=== PATIENT | female | born 1935 | race Caucasian/White ===

== ENCOUNTER 2017-04-07 10:05 | Emergency (ER) | payer MEDICARE, OTHER ==
[2017-04-07 10:42] LABS: #Basophils 0.1 thou/uL (0.0-0.2); #Eosinphils 0.3 thou/uL (0.0-0.7); #Lymphocytes 1.4 thou/uL (1.20-3.40); #Monocytes 0.4 thou/uL (0.11-0.59); #Neutrophils 3.9 thou/uL (1.40-6.50); %Basophils 1.6 % (0.0-1.0); %Eosinophils 5.3 % (0.0-10.0); %Lymphocytes 22.2 % (21.0-51.0); %Monocytes 6.6 % (0.0-10.0); Hematocrit 41.6 % (36.0-47.0); Mean Platelet Volume 8.2 fL (7.4-10.4); Red Blood Cell (RBC) Count 4.54 mill/uL (4.20-5.40); White Blood Cell (WBC) Count 6.1 thou/uL (4.8-10.8)
[2017-04-07] MEDS ORDERED: Diazepam 10 MG/2 ML SYRINGE ONE (10:53)
[2017-04-07] MEDS ORDERED: Dexamethasone 4 mg/ml Vial ONE (10:53)
[2017-04-07 10:58] LABS: Anion Gap 15 mmol/L (10-20); BUN (Urea Nitrogen) 10 mg/dL (9.8-20.1); Calc. Creatinine Clearance 0 mL/min (70-130); Carbon Dioxide 21 mmol/L (23-31); Chloride 107 mmol/L (98-107); Estimated GFR-MDRD 81
[2017-04-07 11:02] LABS: Troponin I Less than 0.010 ng/mL (< 0.028)
--- NOTE | 2017-04-07 12:04 | RAD ---
CHEST 2 VIEWS: Date: 04/07/17 HISTORY: Neck pain. COMPARISON: Chest radiograph dated 2014. FINDINGS: Lungs are clear. No pneumothorax or effusion. Cardiac silhouette and mediastinal contours are simila r. There are mid thoracic compression fractures, as well as lower thoracic compression fractures, all o f which appear similar. The aorta is ectatic and tortuous. Occluder device is present projecting over the left atrium. IMPRESSION: No acute intrathoracic abnormality. POS: [facility]
--- NOTE | 2017-04-07 12:22 | CT ---
CT CERVICAL SPINE NONCONTRAST: HISTORY: 81-year-old female with nontraumatic cervicalgia. FINDINGS: No prevertebral soft tissue swelling. Vertebral body heights are maintained. The bilateral foramina transversaria are prominent. This is especially so on the left at the C4 level. No jumped or perched facets. Multilevel degenerative facet changes bilaterally, mild and moderate, at multiple levels. High grade disc space narrowing with end plate irregularity at C3-4, C4-5, and C5-6. No high grade central bony spinal canal stenosis at any level. There is moderate bilateral proximal neural foramin al stenosis at C5-6. No fracture identified. IMPRESSION: 1. Cervical spondylosis, with multilevel degenerative disc disease and facet osteoarthrosis, modera te to severe. 2. Bilateral neural foraminal stenosis at C5-6. 3. No high grade central spinal canal stenosis at any level. [facility] Mistry POS: [facility]
== END 2017-04-07 11:58 | disposition home or self-care (01) ==
LOC: SCSER 10:05
DX: M54.2 Cervicalgia (principal); I25.10 Atherosclerotic heart disease of native coronary artery without angina pectoris; I50.9 Heart failure, unspecified; M81.0 Age-related osteoporosis without current pathological fracture; M06.9 Rheumatoid arthritis, unspecified; Z79.82 Long term (current) use of aspirin; Z79.899 Other long term (current) drug therapy
CPT/HCPCS: 71020; 72125; 80048; 82553; 84484; 85025; 93005; 96374; 96375; J1100; J3360

== ENCOUNTER 2017-04-10 12:48 | Outpatient (CLI) | payer MEDICARE, OTHER ==
[2017-04-10] MEDS ORDERED: Sodium Chloride 0.9% (PF) 10 ML VIAL ONE (13:49)
[2017-04-10] MEDS ORDERED: EPINEPHrine 1 MG/ML AMP ONE (13:49)
[2017-04-10] MEDS ORDERED: Iopamidol 300 61% 30 ML VIAL ONE (13:49)
[2017-04-10] MEDS ORDERED: Lidocaine 1% PF 5 ML VIAL ONE (13:49)
--- NOTE | 2017-04-10 15:53 | RAD ---
LEFT SHOULDER ARTHROGRAM 04/10/17 HISTORY: Internal derangement left shoulder. FINDINGS: After explaining the procedure and answering all questions, the anterior aspect of the left shoulder was prepped and draped in the usual sterile fashion. Sterile technique, buffered local anesthesia, fluoroscopic guidance, and an anterior approach were used to carefully advanced the tip of a 22 gaug e spinal needle to the joint capsule. Approximately 10 mL of a liquid mixture containing normal sali ne, 1% lidocaine, iodinated contrast, and a small amount of epinephrine were then instilled into the joint capsule under fluoroscopic control. Needle was removed and spot images were obtained. Patient tolerated the procedure well and was transferred to CT in good condition for further imaging. IMPRESSION: Technically successful left shoulder arthrogram revealing no full thickness rotator cuff tear. Post arthrogram CT is pending. POS: [facility]
--- NOTE | 2017-04-10 16:10 | CT ---
CT ARTHROGRAM OF THE LEFT SHOULDER: Indication: N25.5.2; left shoulder pain. Technique: Multiple CT images were obtained of the left shoulder following intraarticular administra tion of diluted IV contrast solution. Please see the arthrogram report concerning injection techniqu e. FINDINGS: The biceps tendon is located. There is mild to moderate suggested tendinosis involving the proximal biceps tendon. The rotator cuff is intact. There is some mild suggestive atrophy of the supraspinatu s which is nonspecific. There is mild to moderate degenerative arthrosis involving the glenohumeral joint with a subchondral cyst like abnormality involving the posterior inferior aspect of the glenoi d. No definite intraarticular bodies are evident. There is a left chest wall pacemaker in place. The re are small bilateral pleural effusions present. There is cardiomegaly. The left lung is clear. The re is mild osteoarthrosis of the AC joint. IMPRESSION: 1. Intact rotator cuff. 2. Mild supraspinatus muscular atrophy. 3. Suggestion of some mild to moderate tendinosis of the proximal intraarticular biceps tendon. 4. Mild AC joint osteoarthrosis. 5. Small bilateral pleural effusion and cardiomegaly. Recommend correlate for mild CHF. POS: [facility]
== END 2017-04-10 12:49 | disposition home or self-care (01) ==
LOC: RAD 12:48
PROVIDERS: ATTEND Orthopaedic Surgery
DX: M25.512 Pain in left shoulder (principal); M19.012 Primary osteoarthritis, left shoulder; M62.512 Muscle wasting and atrophy, not elsewhere classified, left shoulder; J90 Pleural effusion, not elsewhere classified; I51.7 Cardiomegaly; M75.22 Bicipital tendinitis, left shoulder
CPT/HCPCS: 23350; J0171; J2001

== ENCOUNTER 2017-08-26 13:46 | Inpatient (IN) | payer MEDICARE, OTHER ==
[~2017-08-26 13:46] MED LIST: ISOVUE-370 76%-LOCM 1 ML ONE
--- NOTE | 2017-08-26 14:33 | RAD ---
PORTABLE CHEST: Date: 08/26/17 HISTORY: Chest pain. Confusion. COMPARISON: 05/19/16. FINDINGS: Heart size is enlarged. There is an internal defibrillator device present. The lungs are clear of inf iltrates. No signs of failure. Right humeral prosthesis is noted. IMPRESSION: Cardiomegaly. No acute findings. POS: [facility]
[2017-08-26 14:46] LABS: #Basophils 0.1 thou/uL (0.0-0.2); #Eosinphils 0.2 thou/uL (0.0-0.7); #Lymphocytes 1.3 thou/uL (1.20-3.40); #Monocytes 0.4 thou/uL (0.11-0.59); #Neutrophils 3.7 thou/uL (1.40-6.50); %Basophils 1.5 % (0.0-1.0); %Eosinophils 3.5 % (0.0-10.0); %Lymphocytes 21.9 % (21.0-51.0); %Monocytes 7.5 % (0.0-10.0); %Neutrophils 65.6 % (42.0-75.0); Hemoglobin 13.5 g/dL (12.0-16.0); Mean Corpuscular HGB CONC 33.1 g/dL (32.0-36.0); Mean Corpuscular Hemoglobin 30.7 pg (27.0-31.0); Mean Corpuscular Volume 92.5 fl (81.0-99.0); Platelet Count 193 thou/uL (130-400); RBC Distribution Width 11.7 % (11.5-14.5); Red Blood Cell (RBC) Count 4.39 mill/uL (4.20-5.40); White Blood Cell (WBC) Count 5.7 thou/uL (4.8-10.8)
[2017-08-26 14:57] LABS: INR-International Normal Ratio 1.1; PTT 28.6 SEC (22.9-36.1)
[2017-08-26 15:13] LABS: ALT (SGPT) 17 U/L (8-55); AST (SGOT) 27 U/L (5-34); Albumin 3.6 g/dL (3.4-4.8); Alkaline Phosphatase 40 U/L (40-150); Anion Gap 17 mmol/L (10-20); BUN (Urea Nitrogen) 10 mg/dL (9.8-20.1); Bilirubin, Total 0.6 mg/dL (0.2-1.2); CK (CPK) 53 U/L (29-168); Calc. Creatinine Clearance 0 mL/min (70-130); Calcium 8.9 mg/dL (7.8-10.44); Carbon Dioxide 22 mmol/L (23-31); Chloride 104 mmol/L (98-107); Estimated GFR-MDRD 72; Globulin 2.8 g/dL (2.4-3.5); Glucose 67 mg/dL (83-110); Lipase 27 U/L (8-78); Potassium 4.5 mmol/L (3.5-5.1); Protein, Total 6.4 g/dL (6.0-8.3); Sodium 138 mmol/L (136-145)
--- NOTE | 2017-08-26 15:31 | CT ---
CT OF THE BRAIN WITHOUT CONTRAST: Date: 08/26/17 INDICATION: Altered mental status. COMPARISON: Prior exam dated 05/19/16. FINDINGS: There is a remote lacunar infarct involving the left cerebellar hemisphere which is stable. There is mild chronic small vessel white matter ischemic change. No acute infarct, hemorrhage, or hydrocephalu s present. Septum pellucidum and third ventricle are midline. IMPRESSION: No acute intracranial abnormality. POS: [facility]
[2017-08-26 15:43] LABS: Troponin I Less than 0.010 ng/mL (< 0.028)
[2017-08-26 16:06] LABS: Bilirubin Negative (Negative); Blood, Urine Negative (Negative); Clarity Slightly Cloudy (Clear); Glucose, Urine (Dipstick) Negative (Negative); Leukocyte Negative (Negative); Nitrite Negative (Negative); Protein, Urine (Dipstick) Negative (Neg-Trace); Urobilinogen 0.2 mg/dL (0.2-1.0)
[2017-08-26 17:14] LABS: Troponin I Less than 0.010 ng/mL (< 0.028)
[2017-08-26 18:31] VITALS: BMI 25.0
[2017-08-26] MEDS ORDERED: Ondansetron HCl/PF 4 MG/2 ML Vial IVP PRN (18:46)
[2017-08-26] MEDS ORDERED: Ondansetron ODT 4 MG TAB SL PRN (18:46)
[2017-08-26] MEDS ORDERED: Acetaminophen 325 MG TAB PO PRN ×2 (18:46→22:43)
[2017-08-26 20:21] LABS: Troponin I Less than 0.010 ng/mL (< 0.028)
[2017-08-26 21:46] LABS: Amphetamine Not Detected (NotDetected); Barbiturates Screen Not Detected (NotDetected); Benzodiazepine Screen Not Detected (NotDetected); Cocaine Metabolite Screen Not Detected (NotDetected); Medtox Control Line Valid? VALID (VALID); Medtox Reader # READER 1; Methadone Not Detected (NotDetected); Methamphetamine Not Detected (NotDetected); Opiate Screen Not Detected (NotDetected); Oxycodone Screen Not Detected (NotDetected); Phencyclidine (PCP) Not Detected (NotDetected); THC/Cannabinoid Screen Not Detected (NotDetected); Tricyclic Screen Not Detected (NotDetected)
[2017-08-26] MEDS ORDERED: Dicyclomine 10 MG CAP PO PRN (22:43)
[2017-08-26] MEDS ORDERED: Ondansetron ODT 4 MG TAB PO PRN (22:43)
[2017-08-26] MEDS ORDERED: HYDROcodone/Acetaminophen 5/325 mg Tablet PO PRN (22:43)
[2017-08-26] MEDS ORDERED: Diphenoxylate HCl/Atropine Tablet PO PRN (22:43)
[2017-08-26] MEDS ORDERED: Dronedarone HCl 400 MG TAB PO SCH (23:00)
[2017-08-26] MEDS ORDERED: Carvedilol 6.25 MG TAB PO SCH (23:00)
[2017-08-26] MEDS ORDERED: OXcarbazepine 150 MG TAB PO SCH (23:15)
[2017-08-26] MEDS ORDERED: Valsartan 80 MG TAB PO SCH (23:15)
[2017-08-26] MEDS ORDERED: Rivaroxaban 10 MG TAB PO SCH (23:15)
--- NOTE | 2017-08-26 23:53 | CT ---
CT HEAD CT ANGIOGRAM HEAD CT PERFUSION OF THE HEAD: Date: 08-26-17 Comparison: None. History: New onset confusion. Technique: Serial axial CT imaging obtained at 5 mm intervals from vertex through skull base without contrast. Then, serial axial CT imaging at 1.25 mm intervals obtained from skull base to vertex with IV contrast using a CT angiogram protocol. Coronal and sagittal reformatted imaging obtained. In arturo tion, CT perfusion imaging performed including cerebral blood volume, cerebral blood flow, and mean t ransit time maps. FINDINGS: HEAD CT: Noncontrast enhanced head CT demonstrates periventricular and deep white matter hypodensity, evidence of small vessel disease. There is no intracranial hemorrhage, midline shift, or mass effect seen. There is polypoid mucosal thickening within the maxillary sinuses bilaterally. There is an oval calcification measuring up to 1.1 cm in the middle cranial fossa on the right anteri peyton suggesting an incidentally noted calcified meningioma, stable when compared to head CT performed 05-19-16. Additional scattered areas of extraaxial calcification noted along the left cerebral conve xity, stable. CT ANGIOGRAM HEAD: Imaged portions of distal vertebral arteries are patent bilaterally. There is atherosclerotic calcifi cation of the bilateral distal vertebral arteries. The basilar artery and its branches are patent. No sacular aneurysm, high grade stenosis or vascular occlusion is noted involving the posterior circula tion. 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 There is a pr obable non-flow limiting dissection involving the extracranial ICA on the left on this region on axia l image 12 and coronal image 51. Bilateral imaged internal carotid arteries are patent and demonstrat e no hemodynamically significant stenosis. There is atherosclerotic calcification of bilateral cavern ous carotid arteries. There is a patent posterior communicating artery on the right. The M1 segment is patent bilaterally. The MCA bifurcation and distal MCA branches appear within terrance l limits bilaterally. The A1 segment and the distal MACKENZIE branches are patent bilaterally. No sacular a neurysm, high grade stenosis or vascular occlusion is seen involving the anterior circulation on eith er side. CT PERFUSION MAPS: Mean transit time map, cerebral blood volume map, and cerebral blood flow map demonstrates no focal a leeanna of abnormality within the supratentorial brain parenchyma. IMPRESSION: 1. Noncontrast enhanced head CT demonstrates no intracranial hemorrhage. 2. 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 3. No evidence for a central intraarticular clot. 4. Grossly unremarkable CT perfusion maps. POS: [facility]
[2017-08-27] MEDS: Levothyroxine Sodium 112 MCG TAB PO SCH (05:18)
[2017-08-27 05:25] LABS: #Eosinphils 0.3 thou/uL (0.0-0.7); #Lymphocytes 1.5 thou/uL (1.20-3.40); #Monocytes 0.5 thou/uL (0.11-0.59); #Neutrophils 2.2 thou/uL (1.40-6.50); %Basophils 0.7 % (0.0-1.0); %Eosinophils 6.2 % (0.0-10.0); %Lymphocytes 33.5 % (21.0-51.0); %Monocytes 10.3 % (0.0-10.0); %Neutrophils 49.3 % (42.0-75.0); Mean Corpuscular HGB CONC 33.2 g/dL (32.0-36.0); Mean Corpuscular Hemoglobin 32.2 pg (27.0-31.0); Mean Platelet Volume 7.5 fL (7.4-10.4); Platelet Count 175 thou/uL (130-400); RBC Distribution Width 11.6 % (11.5-14.5); Red Blood Cell (RBC) Count 4.03 mill/uL (4.20-5.40); White Blood Cell (WBC) Count 4.5 thou/uL (4.8-10.8)
[2017-08-27 05:27] LABS: Anion Gap 9 mmol/L (10-20); BUN (Urea Nitrogen) 9 mg/dL (9.8-20.1); Calc. Creatinine Clearance 56 mL/min (70-130); Calcium 8.5 mg/dL (7.8-10.44); Carbon Dioxide 26 mmol/L (23-31); Cardiac Risk 2.9 (Less than 4.5); Chloride 103 mmol/L (98-107); Cholesterol 196 mg/dl (< 200 Desired); Estimated GFR-MDRD 75; Glucose 62 mg/dL (83-110); HDL Cholesterol 67 mg/dL (>60 Neg Risk); LDL Cholesterol, Calculated 118 mg/dL; Potassium 3.7 mmol/L (3.5-5.1); Sodium 134 mmol/L (136-145); Triglycerides 54 mg/dL (Less than 150)
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
[2017-08-27] MEDS: Valsartan 80 MG TAB PO SCH ×2 (08:43→21:03)
[2017-08-27] MEDS: Carvedilol 6.25 MG TAB PO SCH ×2 (08:43→17:39)
[2017-08-27] MEDS: Famotidine 20 MG TAB PO SCH (08:43)
[2017-08-27] MEDS: Dronedarone HCl 400 MG TAB PO SCH ×2 (08:43→17:39)
[2017-08-27] MEDS: Hydroxychloroquine Sulfate 200 MG TAB PO SCH (08:44)
[2017-08-27] MEDS: Potassium Chloride 8 MEQ TAB PO SCH ×2 (08:46→17:38)
[2017-08-27] MEDS ORDERED: Enoxaparin Sodium 40 MG/0.4 ML SYRINGE SC SCH (09:00)
--- NOTE | 2017-08-27 11:26 | PDOC.PN ---
- Subjective Encounter Start Date: 08/27/17 Encounter Start Time: 13:37 cc: confusion sub: Pt denies dyspnea, pt still having intermittent confusion. - Objective Resuscitation Status: Resuscitation Status FULL:Full Resuscitation Vital Signs & Weight: Vital Signs (12 hours) Temp Pulse Resp BP Pulse Ox 08/27/17 08:00 98.3 F 64 18 08/27/17 07:32 98.3 F 64 18 130/63 94 L 08/27/17 04:15 98.4 F 79 16 134/60 94 L 08/26/17 23:40 98.4 F 62 16 151/72 H 95 Weight Weight 136 lb 14.4 oz I&O: 08/26/17 08/27/17 08/28/17 06:59 06:59 06:59 Intake Total 610 Output Total 1650 Balance -1040 Result Diagrams: 08/27/17 04:21 08/27/17 04:21 Phys Exam - Physical Examination Constitutional: NAD HEENT: moist MMs Neck: no JVD Respiratory: no wheezing, no rales, no rhonchi Cardiovascular: RRR, no significant murmur Gastrointestinal: soft, non-tender Musculoskeletal: no edema Neurological: non-focal Psychiatric: normal affect Skin: no rash Dx/Plan - Plan . Pt is 82 yrs old female now came to hospital due to confusion 1. R/O Stroke / Altered mental status: CTA head no evidence of stroke Neuro on board Waiting for PT/OT/ST eval will check ammonia & TSH levels U/A no evidence of infection 2. HTN: Monitor bp closely continue bp meds 3. AFIB + Chronic anticoagulation + Angina: Monitor BP Closely continue xarelto and multaq. cardio on board 4. H/O Hypothyroidism: Continue levothyroxine CASE D/W PT & RN & pt daughters at bed side
[2017-08-27] MEDS ORDERED: Rivaroxaban 10 MG TAB PO SCH (17:00)
--- NOTE | 2017-08-27 18:15 | CON ---
DATE OF CONSULT: 08/27/17 HISTORY OF PRESENT ILLNESS: The patient is a pleasant 82-year-old woman who presents with altered mental status. The patient has a history of ischemic cardiomyopathy. The patient has been on medical therapy. She also has a history of paroxysmal atrial fibrillation. She previously had placement of a Watchman device. She has been in her usual state of health when she suddenly became confused. She did not where she was. The patient's family states that she was unable to respond in a coherent manner. She was taken to the emergency room for further evaluation. PAST MEDICAL HISTORY: 1. Cardiomyopathy. 2. Coronary artery disease. 3. Hypertension. 4. Hypothyroidism. 5. Asthma PAST SURGICAL HISTORY: Shoulder surgery, cholecystectomy, breast surgery, lipoma surgery, vein surgery , and surgery for abdominal rupture. ALLERGIES: ADHESIVE TAPE. MEDICATIONS ON ADMISSION: Aspirin 81 daily, Multaq 400 b.i.d., valsartan 80 mg p.o. b.i.d., Plaquenil 200 daily, Bentyl 120 mg q.i.d. SOCIAL HISTORY: Nonsmoker. REVIEW OF SYSTEMS: Notable for increasing angina, otherwise unremarkable. PHYSICAL EXAMINATION: GENERAL: Obese woman who is confused with a blood pressure of 112/58. NECK: Showed no jugular venous distention. LUNGS: Clear to auscultation. HEART: Regular rate and rhythm, normal S1, S2, I/ systolic murmur. ABDOMEN: Nondistended. EXTREMITIES: Showed trace edema. VASCULAR: Radial pulses are 2+. SKIN: Warm and dry. LABORATORY RESULTS: Sodium 134, potassium 3.7, chloride 103, bicarbonate 26, BUN 9, creatinine 0.74 , troponin is less than 0.01. White blood cell count is 4.5, hemoglobin 13.0, hematocrit 39.1, platelets 175. Her EKG revealed electronic atrial pacemaker. IMPRESSION: 1. Altered mental status. 2. Coronary artery disease. 3. Hypertension. 4. Paroxysmal atrial fibrillation. 5. History of cardiomyopathy. 6. History of AICD. This patient has developed altered mental status and has appeared to have suffered a cerebrovascular accident. The patient undergoing a Neurology evaluation. From a cardiac standpoint her defibrillator was interrogated and there was no evidence of atrial fibrillation. From a cardiac standpoint, we will follow Neurology recommendations. MTDD
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
[2017-08-27] MEDS ORDERED: OXcarbazepine 150 MG TAB PO SCH (21:00)
[2017-08-28] MEDS: Levothyroxine Sodium 112 MCG TAB PO SCH (07:18)
[2017-08-28] MEDS: Valsartan 80 MG TAB PO SCH (08:53)
[2017-08-28] MEDS: Potassium Chloride 8 MEQ TAB PO SCH (08:53)
[2017-08-28] MEDS: Dronedarone HCl 400 MG TAB PO SCH (08:53)
[2017-08-28] MEDS: Famotidine 20 MG TAB PO SCH (08:53)
[2017-08-28] MEDS: Carvedilol 6.25 MG TAB PO SCH (08:53)
[2017-08-28] MEDS: Hydroxychloroquine Sulfate 200 MG TAB PO SCH (08:54)
[2017-08-28] MEDS ORDERED: Clopidogrel Bisulfate 75 MG TAB PO SCH (09:00)
[2017-08-28 11:52] VITALS: TEMP 97.9
[2017-08-28 14:01] VITALS: BP 133/61
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
== END 2017-08-28 14:46 | disposition home or self-care (01) | DRG 65 ==
LOC: SCSER 13:46 → 2SW 16:31 → OBSVTOIN 08-28 10:27
PROVIDERS: ADMIT Internal Medicine; ATTEND Internal Medicine
DX: I63.9 Cerebral infarction, unspecified (principal); I50.22 Chronic systolic (congestive) heart failure; I67.1 Cerebral aneurysm, nonruptured; I42.8 Other cardiomyopathies; I11.0 Hypertensive heart disease with heart failure; I48.0 Paroxysmal atrial fibrillation; G50.0 Trigeminal neuralgia; E03.9 Hypothyroidism, unspecified; E66.9 Obesity, unspecified; I25.10 Atherosclerotic heart disease of native coronary artery without angina pectoris; M06.9 Rheumatoid arthritis, unspecified; M54.5 Low back pain; M81.0 Age-related osteoporosis without current pathological fracture; Z95.810 Presence of automatic (implantable) cardiac defibrillator; Z79.01 Long term (current) use of anticoagulants; Z79.82 Long term (current) use of aspirin; R27.0 Ataxia, unspecified; J45.909 Unspecified asthma, uncomplicated; Z91.048 Other nonmedicinal substance allergy status; Z68.24 Body mass index [BMI] 24.0-24.9, adult; E78.2 Mixed hyperlipidemia
CPT/HCPCS: 0042T; 36415; 36416; 51701; 70450; 70496; 71045; 80048; 80053; 80061; 80306; 81003; 82140; 82553; 83605; 83690; 83735; 84443; 84484; 85025; 85610; 85730; 87086; 93005; G8978-GP-CI; G8978-GP-CJ; G8979-GP-CI; G8979-GP-CJ; G8980-GP-CI; G8980-GP-CJ; G8987-GO-CI; G8988-GO-CI; G8989-GO-CI; G9168-GN-CI; G9169-GN-CI

== ENCOUNTER 2017-11-06 14:06 | Outpatient (CLI) | payer MEDICARE, OTHER ==
--- NOTE | 2017-11-06 15:49 | CT ---
CT CERVICAL SPINE WITHOUT CONTRAST: COMPARISON: 04/07/17. HISTORY: Spondylolisthesis. TECHNIQUE: Cervical spine CT is performed without contrast. Reformatted images are submitted for interpretation . FINDINGS: The visualized soft tissue neck structures are unremarkable. There is atherosclerosis of both caroti d arteries. Upper mediastinum and lung apices are also unremarkable. No evidence of high-grade central canal stenosis. No evidence of high-grade foraminal narrowing. Va rying degrees of foraminal stenosis, mild to moderate, are noted due to degenerative change. Evaluat ion is limited by technique. Lateral masses of C1 and C2 articulate appropriately. There is appropriate articulation of the facet s. Odontoid process is intact. Cervical spine vertebral body height is maintained. No fracture. Overall, when compared to the previous examination, there is no significant change. IMPRESSION: Essentially stable cervical spine CT. No high-grade central canal stenosis or high-grade foraminal n arrowing. Mild to moderate multilevel foraminal stenosis is noted. POS: [facility]
--- NOTE | 2017-11-06 15:58 | RAD ---
SIX VIEWS CERVICAL SPINE INCLUDING FLEXION AND EXTENSION VIEWS: Date: 11-06-17 FINDINGS: C1 to the cervicothoracic junction is seen on the lateral view. There is trace anterolisthesis of C2 on C3 seen on flexion which corrects with flexion and on neutral positioning. No additional level of subluxation is seen. The vertebral body heights are within normal limits. There is narrowing of the i ntervertebral disc spaces at the C3-4, C4-5, and C5-6 levels with osteophyte formation at these level s. No fracture is appreciated. There are facet degenerative changes seen at multiple levels. Preverte bral soft tissues are within normal limits. There is partial visualization of dual-lead left subclavian AICD leads. The odontoid is obscured on t he odontoid view but has a normal appearance on the lateral projection. IMPRESSION: 1. Trace anterolisthesis of C2 on C3 only seen on flexion and corrects on extension. 2. 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 POS: [facility]
== END 2017-11-06 14:07 | disposition home or self-care (01) ==
LOC: RAD 14:06
PROVIDERS: ATTEND Specialist
DX: M43.12 Spondylolisthesis, cervical region (principal); M47.892 Other spondylosis, cervical region; M99.81 Other biomechanical lesions of cervical region
CPT/HCPCS: 72040; 72125

== ENCOUNTER 2018-01-14 13:57 | Outpatient (CLI) | payer MEDICARE, OTHER | END 2018-01-14 13:58 | disposition home or self-care (01) | LOC: BICMAMMO 13:57 | PROVIDERS: ATTEND Physician Assistant | DX: M81.0 Age-related osteoporosis without current pathological fracture (principal) | CPT/HCPCS: 77080 ==

== ENCOUNTER 2018-03-26 15:58 | Outpatient (CLI) | payer MEDICARE, OTHER ==
--- NOTE | 2018-03-26 16:44 | RAD ---
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 COMPARISON: 12/09/2014 FINDINGS: There is diffuse bone demineralization. There is stable loss of vertebral body height in the distal thoracic spine and in the ultrasound. Acute compression fractures of the lumbar spine are not apprec iated. Severe loss of vertebral body height at T11 and at T8 is felt to be chronic. In the neutral position, there is 6 mm of anterolisthesis of L4 upon L5. Upon flexion, there is 6 mm of anterolisth esis. Upon extension, there is also 6 mm of anterolisthesis. Atherosclerosis is noted. IMPRESSION: Stable anterolisthesis of L4 upon L5. POS: [facility]
== END 2018-03-26 15:59 | disposition home or self-care (01) ==
LOC: RAD 15:58
PROVIDERS: ATTEND Nurse Practitioner Family
DX: M47.816 Spondylosis without myelopathy or radiculopathy, lumbar region (principal); M43.16 Spondylolisthesis, lumbar region
CPT/HCPCS: 72100

== ENCOUNTER 2018-09-15 13:15 | Outpatient (CLI) | payer MEDICARE, OTHER ==
[~2018-09-15 13:15] MED LIST changes: -ISOVUE-370 76%-LOCM 1 ML ONE; +Iopamidol 370 76% 100 ML VIAL ONE
--- NOTE | 2018-09-15 16:18 | CT ---
CT BRAIN WITH AND WITHOUT IV CONTRAST: HISTORY: Positional headache. COMPARISON: Contrast study from 05/27/2009. Noncontrast exam from 08/26/2017. 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 The ventricular size is stable, and the basilar cisterns are patent. N o evidence of infarct, hemorrhage, mass, midline shift, or abnormal extraaxial fluid collections is s een. No abnormal post contrast enhancement is noted. The bony calvarium is intact. The visualized paranasal sinuses and mastoid air cells are well aerated. IMPRESSION: No CT evidence of acute intracranial process or mass. POS: [facility]
== END 2018-09-15 13:16 | disposition home or self-care (01) ==
LOC: SCSCT 13:15
PROVIDERS: ATTEND Family Medicine
DX: R51 Headache (principal)
CPT/HCPCS: 70470; 82565

== ENCOUNTER 2019-11-05 14:27 | Outpatient (CLI) | payer MEDICARE, OTHER ==
--- NOTE | 2019-11-05 14:48 | RAD ---
EXAM: Chest PA and lateral: HISTORY: Chest pain COMPARISON: 04/07/2017 FINDINGS: Pacemaker in incidentals: Stable hiatal hernia. Stable Magallanes's device. Stable left-sided defibrilla tor. Heart: Cardiomegaly. Aorta: Slight elongation of the aorta Pulmonary vessels: Normal Costophrenic angles: Costophrenic angles are clear. Lungs: No consolidation or masses. Pneumothorax: No pneumothorax Osseous structures: No acute osseous abnormalities. Redemonstration of a right humeral prosthesis IMPRESSION: No acute cardiopulmonary process.
== END 2019-11-05 14:28 | disposition home or self-care (01) ==
LOC: SCSRAD 14:27
PROVIDERS: ATTEND Physician Assistant
DX: M54.9 Dorsalgia, unspecified (principal); M81.0 Age-related osteoporosis without current pathological fracture
CPT/HCPCS: 71046

== ENCOUNTER 2020-03-02 10:05 | Outpatient (CLI) | payer MEDICARE, OTHER ==
--- NOTE | 2020-03-03 09:30 | BD ---
BONE DENSITOMETRY: INDICATION: Postmenopausal screening. FINDINGS: Lumbar Spine: BMD (g/cm2) L1 0.818 T-Score: -1.6 L2 0.833 T-Score: -1.8 L3 0.796 T-Score: -2.6 L4 0.858 T-Score: -1.8 L1-L4 0.829 T-Score: -2.0 Femoral Neck: 0.550 T-Score: -2.7 Total Femur: 0.705 T-Score: -1.9 Impression: 1. Bone mineral density of the femoral neck indicates osteoporosis. 2. Bone mineral density of the lumbar spine indicates osteopenia. POS: [facility]
== END 2020-03-02 10:06 | disposition home or self-care (01) ==
LOC: BICMAMMO 10:05
PROVIDERS: ATTEND Internal Medicine Rheumatology
DX: M81.0 Age-related osteoporosis without current pathological fracture (principal)
CPT/HCPCS: 77080

== ENCOUNTER 2021-04-10 15:33 | Outpatient (CLI) | payer MEDICARE, OTHER | END 2021-04-10 15:34 | disposition home or self-care (01) | LOC: BICMAMMO 15:33 | PROVIDERS: ATTEND Internal Medicine Rheumatology | DX: M81.0 Age-related osteoporosis without current pathological fracture (principal); M17.0 Bilateral primary osteoarthritis of knee | CPT/HCPCS: 77080 ==

== ENCOUNTER 2021-05-15 15:42 | Outpatient (CLI) | payer MEDICARE, OTHER | END 2021-05-15 15:43 | disposition home or self-care (01) | LOC: BICRAD 15:42 | PROVIDERS: ATTEND Internal Medicine Cardiovascular Disease | DX: I25.10 Atherosclerotic heart disease of native coronary artery without angina pectoris (principal); G45.9 Transient cerebral ischemic attack, unspecified; S22.009A Unspecified fracture of unspecified thoracic vertebra, initial encounter for closed fracture; S32.019A Unspecified fracture of first lumbar vertebra, initial encounter for closed fracture; I77.810 Thoracic aortic ectasia | CPT/HCPCS: 71046 ==

== ENCOUNTER 2021-05-25 16:44 | Emergency (ER) | payer MEDICARE, OTHER ==
[2021-05-25 17:58] LABS: #Basophils 0.1 thou/uL (0.0-0.2); #Eosinphils 0.1 thou/uL (0.0-0.7); #Lymphocytes 1.4 thou/uL (1.20-3.40); #Monocytes 0.5 thou/uL (0.11-0.59); #Neutrophils 3.6 thou/uL (1.40-6.50); %Eosinophils 2.5 % (0.0-10.0); %Lymphocytes 25.1 % (21.0-51.0); %Monocytes 8.9 % (0.0-10.0); %Neutrophils 62.6 % (42.0-75.0); Hemoglobin 13.1 g/dL (12.0-16.0); Mean Corpuscular HGB CONC 32.9 g/dL (32.0-36.0); Mean Corpuscular Hemoglobin 32.3 pg (27.0-31.0); Mean Corpuscular Volume 98.1 fL (78.0-98.0); Mean Platelet Volume 7.6 fL (7.4-10.4); Platelet Count 193 thou/uL (130-400); Red Blood Cell (RBC) Count 4.06 mill/uL (4.20-5.40); White Blood Cell (WBC) Count 5.8 thou/uL (4.8-10.8)
[2021-05-25 18:21] LABS: ALT (SGPT) 17 U/L (8-55); AST (SGOT) 17 U/L (5-34); Albumin 3.4 g/dL (3.4-4.8); Alkaline Phosphatase 53 U/L (40-110); Anion Gap 12 mmol/L (10-20); BUN (Urea Nitrogen) 23 mg/dL (9.8-20.1); Bilirubin, Total 0.3 mg/dL (0.2-1.2); Calc. Creatinine Clearance 0 mL/min (70-130); Carbon Dioxide 24 mmol/L (23-31); Chloride 104 mmol/L (98-107); Globulin 2.7 g/dL (2.4-3.5); Glucose 89 mg/dL (83-110); Potassium 4.1 mmol/L (3.5-5.1); Protein, Total 6.1 g/dL (5.8-8.1); Sodium 136 mmol/L (136-145)
== END 2021-05-25 19:45 | disposition home or self-care (01) ==
LOC: ERS 16:44
DX: R06.00 Dyspnea, unspecified (principal); I25.10 Atherosclerotic heart disease of native coronary artery without angina pectoris; I50.9 Heart failure, unspecified; M06.9 Rheumatoid arthritis, unspecified; Z79.899 Other long term (current) drug therapy; Z79.82 Long term (current) use of aspirin
CPT/HCPCS: 71275; 80053; 83880; 84484; 85025; 93005

== ENCOUNTER 2021-07-24 13:47 | Outpatient (CLI) | payer OTHER | END 2021-07-24 13:48 | disposition home or self-care (01) | LOC: DTY/OP 13:47 | PROVIDERS: ATTEND Physician Assistant Medical | DX: R63.30 Feeding difficulties, unspecified (principal); Z72.4 Inappropriate diet and eating habits | CPT/HCPCS: 97802 ==

== ENCOUNTER 2021-08-04 15:25 | Outpatient (CLI) | payer MEDICARE, OTHER ==
[2021-08-05 12:11] LABS: SARS-CoV-2 PCR by NAA Not Detected (NotDetected)
== END 2021-08-04 15:26 | disposition home or self-care (01) ==
LOC: LABBT 15:25
PROVIDERS: ATTEND Internal Medicine Pulmonary Disease
DX: Z01.812 Encounter for preprocedural laboratory examination (principal); Z20.822 Contact with and (suspected) exposure to COVID-19
CPT/HCPCS: U0003; U0005

== ENCOUNTER 2022-07-27 14:04 | Inpatient (IN) | payer MEDICARE ==
[2022-07-27 15:20] LABS: #Lymphocytes 0.4 thou/uL (1.20-3.40); #Monocytes 0.8 thou/uL (0.11-0.59); #Neutrophils 7.2 thou/uL (1.40-6.50); %Eosinophils 0.2 % (0.0-10.0); %Lymphocytes 5.1 % (21.0-51.0); %Monocytes 9.2 % (0.0-10.0); %Neutrophils 85.5 % (42.0-75.0); Hemoglobin 14.4 g/dL (12.0-16.0); Mean Corpuscular HGB CONC 32.9 g/dL (32.0-36.0); Mean Corpuscular Hemoglobin 32.8 pg (27.0-31.0); Mean Corpuscular Volume 99.9 fl (78.0-98.0); Platelet Count 168 10x3/uL (130-400); RBC Distribution Width 12.6 % (11.5-14.5); Red Blood Cell (RBC) Count 4.39 mill/uL (4.20-5.40); White Blood Cell (WBC) Count 8.4 10x3/uL (4.8-10.8)
[2022-07-27 15:57] LABS: ALT (SGPT) 17 U/L (8-55); AST (SGOT) 25 U/L (5-34); Albumin 3.6 g/dL (3.4-4.8); Alkaline Phosphatase 54 U/L (40-110); Anion Gap 14 mmol/L (10-20); BUN (Urea Nitrogen) 13 mg/dL (9.8-20.1); Bilirubin, Total 0.9 mg/dL (0.2-1.2); CK (CPK) 291 U/L (29-168); Calc. Creatinine Clearance 0 mL/min (70-130); Calcium 8.6 mg/dL (7.8-10.44); Carbon Dioxide 22 mmol/L (23-31); Chloride 101 mmol/L (98-107); Estimated GFR 84; Globulin 2.4 g/dL (2.4-3.5); Glucose 97 mg/dL (83-110); Lipase 29 U/L (8-78); Potassium 3.9 mmol/L (3.5-5.1); Sodium 133 mmol/L (136-145)
[2022-07-27] MEDS ORDERED: Aspirin Chewable 81 MG TAB ONE (17:13)
[2022-07-27] MEDS ORDERED: Morphine 2 MG/ML VIAL ONE (17:13)
[2022-07-27 18:31] LABS: Troponin I 0.114 ng/mL (< 0.028)
[2022-07-27 21:38] LABS: Troponin I 0.104 ng/mL (< 0.028)
[2022-07-28 00:21] VITALS: BMI 25.2
[2022-07-28 04:26] LABS: #Lymphocytes 0.9 thou/uL (1.20-3.40); #Monocytes 0.7 thou/uL (0.11-0.59); #Neutrophils 4.4 thou/uL (1.40-6.50); %Basophils 0.5 % (0.0-1.0); %Eosinophils 0.6 % (0.0-10.0); %Lymphocytes 15.1 % (21.0-51.0); %Monocytes 12.1 % (0.0-10.0); %Neutrophils 71.7 % (42.0-75.0); Hemoglobin 14.1 g/dL (12.0-16.0); Mean Corpuscular HGB CONC 33.2 g/dL (32.0-36.0); Mean Corpuscular Hemoglobin 33.5 pg (27.0-31.0); Mean Platelet Volume 7.9 fL (7.4-10.4); Platelet Count 137 10x3/uL (130-400); RBC Distribution Width 12.8 % (11.5-14.5); Red Blood Cell (RBC) Count 4.22 mill/uL (4.20-5.40); White Blood Cell (WBC) Count 6.1 10x3/uL (4.8-10.8)
[2022-07-28 04:49] LABS: Anion Gap 12 mmol/L (10-20); BUN (Urea Nitrogen) 17 mg/dL (9.8-20.1); Calc. Creatinine Clearance 49 mL/min (70-130); Calcium 8.5 mg/dL (7.8-10.44); Carbon Dioxide 26 mmol/L (23-31); Chloride 102 mmol/L (98-107); Estimated GFR 71; Glucose 94 mg/dL (83-110); Potassium 3.2 mmol/L (3.5-5.1); Sodium 137 mmol/L (136-145)
[2022-07-28] MEDS ORDERED: Potassium Chloride 20 MEQ TAB PO SCH (08:00)
[2022-07-28] MEDS: Sodium Chloride 0.9% 1,000 ML IV SCH (11:25)
[2022-07-28 15:14] LABS: Bacteria/HPF None Seen HPF (None Seen); Bilirubin Negative (Negative); Blood, Urine Negative (Negative); CAUTI Indications for Culture Alt mental st,lethar; Calcium Oxalate Crystals 1+ HPF (None Seen); Clarity Clear (Clear); Glucose, Urine (Dipstick) Normal (Negative); Ketone, Urine Negative (Negative); Leukocyte 500 Leu/uL (Negative); Nitrite Negative (Negative); Protein, Urine (Dipstick) 50 mg/dL (Neg-Trace); RBC/HPF 0-3 HPF (0-3); Specific Gravity, Urine 1.028 (1.002-1.036); Urobilinogen Normal mg/dL (Less than 2)
[2022-07-28 15:16] LABS: Urine Culture Reflex No No
[2022-07-28] MEDS: Dronedarone HCl 400 MG TAB PO SCH (17:06)
[2022-07-28] MEDS: Donepezil HCl 10 MG TAB PO SCH (21:36)
[2022-07-28] MEDS: Sertraline 25 MG TAB PO SCH (21:36)
[2022-07-28] MEDS: Hydroxychloroquine Sulfate 200 MG TAB PO SCH (21:36)
[2022-07-28] MEDS: Carvedilol 3.125 MG TAB PO SCH (21:36)
[2022-07-29] MEDS: Sodium Chloride 0.9% 1,000 ML IV SCH ×2 (05:06→21:09)
[2022-07-29 05:15] LABS: Anion Gap 13 mmol/L (10-20); BUN (Urea Nitrogen) 11 mg/dL (9.8-20.1); Calc. Creatinine Clearance 60 mL/min (70-130); Calcium 7.8 mg/dL (7.8-10.44); Carbon Dioxide 20 mmol/L (23-31); Chloride 108 mmol/L (98-107); Estimated GFR 85; Glucose 79 mg/dL (83-110); Potassium 3.5 mmol/L (3.5-5.1); Sodium 137 mmol/L (136-145)
[2022-07-29 05:50] LABS: Band 6 % (5-11); Eosinophils 1 % (0-10); Hemoglobin 13.7 g/dL (12.0-16.0); Lymphocytes 30 % (21-51); MDiff Complete? YES; Macrocytosis MODERATE=16-30 cells (100X) (0-5/hpf); Mean Corpuscular HGB CONC 34.4 g/dL (32.0-36.0); Mean Corpuscular Hemoglobin 34.6 pg (27.0-31.0); Mean Platelet Volume 8.4 fL (7.4-10.4); Monocytes 10 % (0-10); Neutrophil 50 % (42-75); Ovalocytes SLIGHT = 2-5 cells (100X) (0-1/hpf); Platelet Count 122 10x3/uL (130-400); Platelet Morphology Comment Appears Decreased; RBC Distribution Width 12.8 % (11.5-14.5); Reactive Lymphocytes 2 % (0-10); Red Blood Cell (RBC) Count 3.95 mill/uL (4.20-5.40); White Blood Cell (WBC) Count 4.3 10x3/uL (4.8-10.8)
[2022-07-29] MEDS: Levothyroxine Sodium 112 MCG TAB PO SCH (07:12)
[2022-07-29] MEDS: Clopidogrel Bisulfate 75 MG TAB PO SCH (08:36)
[2022-07-29] MEDS: Dronedarone HCl 400 MG TAB PO SCH (08:36)
[2022-07-29] MEDS: Ascorbic Acid 500 mg Chewable Tablet PO SCH (08:36)
[2022-07-29] MEDS: Carvedilol 3.125 MG TAB PO SCH ×2 (08:36→21:09)
[2022-07-29] MEDS: Donepezil HCl 10 MG TAB PO SCH ×2 (08:37→21:09)
[2022-07-29] MEDS: Zinc Sulfate 220 MG CAP PO SCH (08:38)
[2022-07-29] MEDS: Prenatal Vitamin 1 TAB PO SCH (08:38)
[2022-07-29] MEDS ORDERED: Promethazine HCl 25 MG in Sodium Chloride 0.9% 50 ML IVPB PRN (13:18)
[2022-07-29] MEDS: cefTRIAXone\\ROCEPHIN 1 GM in Sodium Chloride 0.9% 100 ML IVPB SCH (13:40)
[2022-07-29] MEDS: Acetaminophen 325 MG TAB PO PRN ×2 (14:09→21:10)
[2022-07-29] MEDS ORDERED: Saccharomyces boulardii 250 MG CAP PO SCH (16:45)
[2022-07-29] MEDS: Sertraline 25 MG TAB PO SCH (21:09)
[2022-07-29] MEDS: Hydroxychloroquine Sulfate 200 MG TAB PO SCH (21:10)
[2022-07-29 21:12] LABS: Campy jejuni + coli by PCR Negative (Negative); STEC Shiga Toxin 1+2 Negative (Negative); Salmonella spp. by PCR Negative (Negative); Shigella spp + EIEC by PCR Negative (Negative)
[2022-07-30 04:30] LABS: #Eosinphils 0.1 thou/uL (0.0-0.7); #Lymphocytes 1.3 thou/uL (1.20-3.40); #Monocytes 0.5 thou/uL (0.11-0.59); #Neutrophils 2.1 thou/uL (1.40-6.50); %Basophils 0.6 % (0.0-1.0); %Eosinophils 2.3 % (0.0-10.0); %Lymphocytes 32.8 % (21.0-51.0); %Monocytes 12.6 % (0.0-10.0); %Neutrophils 51.7 % (42.0-75.0); Hemoglobin 12.4 g/dL (12.0-16.0); Mean Corpuscular HGB CONC 33.4 g/dL (32.0-36.0); Mean Corpuscular Hemoglobin 33.7 pg (27.0-31.0); Mean Platelet Volume 8.4 fL (7.4-10.4); Platelet Count 120 10x3/uL (130-400); RBC Distribution Width 12.6 % (11.5-14.5); Red Blood Cell (RBC) Count 3.69 mill/uL (4.20-5.40)
[2022-07-30 04:53] LABS: Anion Gap 9 mmol/L (10-20); BUN (Urea Nitrogen) 9 mg/dL (9.8-20.1); Calc. Creatinine Clearance 69 mL/min (70-130); Calcium 7.8 mg/dL (7.8-10.44); Carbon Dioxide 21 mmol/L (23-31); Chloride 110 mmol/L (98-107); Estimated GFR 88; Glucose 76 mg/dL (83-110); Potassium 3.2 mmol/L (3.5-5.1); Sodium 137 mmol/L (136-145)
[2022-07-30] MEDS: Levothyroxine Sodium 112 MCG TAB PO SCH (07:20)
[2022-07-30] MEDS: Prenatal Vitamin 1 TAB PO SCH (09:16)
[2022-07-30] MEDS: Sodium Chloride 0.9% 1,000 ML IV SCH ×2 (09:16→23:27)
[2022-07-30] MEDS: Carvedilol 3.125 MG TAB PO SCH ×2 (09:16→20:49)
[2022-07-30] MEDS: Zinc Sulfate 220 MG CAP PO SCH (09:16)
[2022-07-30] MEDS: Clopidogrel Bisulfate 75 MG TAB PO SCH (09:16)
[2022-07-30] MEDS: Potassium Chloride 20 MEQ TAB PO SCH ×2 (09:16→17:56)
[2022-07-30] MEDS: Saccharomyces boulardii 250 MG CAP PO SCH (09:16)
[2022-07-30] MEDS: Donepezil HCl 10 MG TAB PO SCH ×2 (09:17→20:49)
[2022-07-30] MEDS: Ascorbic Acid 500 mg Chewable Tablet PO SCH (09:17)
[2022-07-30] MEDS: Vancomycin HCl 125 MG/5 ML (BATCHED) UDCUP PO SCH ×3 (14:08→23:27)
[2022-07-30] MEDS: cefTRIAXone\\ROCEPHIN 1 GM in Sodium Chloride 0.9% 100 ML IVPB SCH (14:08)
[2022-07-30] MEDS ORDERED: Ondansetron PF 4 MG/2 ML Vial IVP PRN (15:34)
[2022-07-30] MEDS: Hydroxychloroquine Sulfate 200 MG TAB PO SCH (20:49)
[2022-07-30] MEDS: Sertraline 25 MG TAB PO SCH (20:50)
[2022-07-31 05:18] LABS: #Eosinphils 0.1 thou/uL (0.0-0.7); #Lymphocytes 1.5 thou/uL (1.20-3.40); #Monocytes 0.5 thou/uL (0.11-0.59); #Neutrophils 1.4 thou/uL (1.40-6.50); %Basophils 0.6 % (0.0-1.0); %Lymphocytes 42.3 % (21.0-51.0); %Monocytes 12.9 % (0.0-10.0); %Neutrophils 40.2 % (42.0-75.0); Hemoglobin 12.8 g/dL (12.0-16.0); Mean Corpuscular HGB CONC 34.7 g/dL (32.0-36.0); Mean Corpuscular Hemoglobin 34.9 pg (27.0-31.0); Mean Platelet Volume 8.2 fL (7.4-10.4); Platelet Count 132 10x3/uL (130-400); RBC Distribution Width 12.4 % (11.5-14.5); Red Blood Cell (RBC) Count 3.66 mill/uL (4.20-5.40); White Blood Cell (WBC) Count 3.5 10x3/uL (4.8-10.8)
[2022-07-31 05:35] LABS: Anion Gap 10 mmol/L (10-20); BUN (Urea Nitrogen) 6 mg/dL (9.8-20.1); Calc. Creatinine Clearance 69 mL/min (70-130); Carbon Dioxide 24 mmol/L (23-31); Chloride 109 mmol/L (98-107); Estimated GFR 88; Glucose 73 mg/dL (83-110); Magnesium 2.1 mg/dL (1.6-2.6); Potassium 3.6 mmol/L (3.5-5.1); Sodium 139 mmol/L (136-145)
[2022-07-31] MEDS: Vancomycin HCl 125 MG/5 ML (BATCHED) UDCUP PO SCH ×3 (05:49→18:14)
[2022-07-31] MEDS: Levothyroxine Sodium 112 MCG TAB PO SCH (05:49)
[2022-07-31] MEDS ORDERED: Potassium Chloride 20 MEQ TAB PO SCH (09:00)
[2022-07-31] MEDS: Clopidogrel Bisulfate 75 MG TAB PO SCH (09:23)
[2022-07-31] MEDS: Donepezil HCl 10 MG TAB PO SCH ×2 (09:23→21:10)
[2022-07-31] MEDS: Ascorbic Acid 500 mg Chewable Tablet PO SCH (09:23)
[2022-07-31] MEDS: Saccharomyces boulardii 250 MG CAP PO SCH (09:24)
[2022-07-31] MEDS: Carvedilol 3.125 MG TAB PO SCH ×2 (09:24→21:09)
[2022-07-31] MEDS: Prenatal Vitamin 1 TAB PO SCH (09:24)
[2022-07-31] MEDS: Zinc Sulfate 220 MG CAP PO SCH (09:24)
[2022-07-31] MEDS: Sodium Chloride 0.9% 1,000 ML IV SCH (09:24)
[2022-07-31] MEDS: Acetaminophen 325 MG TAB PO PRN (10:38)
[2022-07-31] MEDS: Lactated Ringer's 1,000 ML IV SCH (13:12)
[2022-07-31] MEDS: cefTRIAXone\\ROCEPHIN 1 GM in Sodium Chloride 0.9% 100 ML IVPB SCH (14:03)
[2022-07-31] MEDS: Sertraline 25 MG TAB PO SCH (21:10)
[2022-07-31] MEDS: Hydroxychloroquine Sulfate 200 MG TAB PO SCH (21:10)
[2022-08-01] MEDS: Vancomycin HCl 125 MG/5 ML (BATCHED) UDCUP PO SCH ×4 (00:36→18:27)
[2022-08-01] MEDS: Lactated Ringer's 1,000 ML IV SCH ×2 (00:36→16:01)
[2022-08-01 05:21] LABS: #Eosinphils 0.2 thou/uL (0.0-0.7); #Lymphocytes 1.5 thou/uL (1.20-3.40); #Monocytes 0.5 thou/uL (0.11-0.59); #Neutrophils 1.9 thou/uL (1.40-6.50); %Basophils 0.3 % (0.0-1.0); %Eosinophils 3.9 % (0.0-10.0); %Lymphocytes 37.4 % (21.0-51.0); %Monocytes 12.5 % (0.0-10.0); Hemoglobin 13.1 g/dL (12.0-16.0); Mean Corpuscular HGB CONC 33.6 g/dL (32.0-36.0); Mean Corpuscular Hemoglobin 33.5 pg (27.0-31.0); Mean Corpuscular Volume 99.7 fl (78.0-98.0); Mean Platelet Volume 8.5 fL (7.4-10.4); Platelet Count 133 10x3/uL (130-400); RBC Distribution Width 12.3 % (11.5-14.5); Red Blood Cell (RBC) Count 3.91 mill/uL (4.20-5.40); White Blood Cell (WBC) Count 4.1 10x3/uL (4.8-10.8)
[2022-08-01] MEDS: Levothyroxine Sodium 112 MCG TAB PO SCH (05:30)
[2022-08-01 05:48] LABS: Anion Gap 13 mmol/L (10-20); BUN (Urea Nitrogen) 6 mg/dL (9.8-20.1); Calc. Creatinine Clearance 69 mL/min (70-130); Calcium 8.3 mg/dL (7.8-10.44); Carbon Dioxide 23 mmol/L (23-31); Chloride 106 mmol/L (98-107); Estimated GFR 88; Glucose 72 mg/dL (83-110); Magnesium 1.7 mg/dL (1.6-2.6); Potassium 3.5 mmol/L (3.5-5.1); Sodium 138 mmol/L (136-145)
[2022-08-01] MEDS: Prenatal Vitamin 1 TAB PO SCH (09:23)
[2022-08-01] MEDS: Donepezil HCl 10 MG TAB PO SCH ×2 (09:23→20:29)
[2022-08-01] MEDS: Zinc Sulfate 220 MG CAP PO SCH (09:23)
[2022-08-01] MEDS: Saccharomyces boulardii 250 MG CAP PO SCH (09:23)
[2022-08-01] MEDS: Carvedilol 3.125 MG TAB PO SCH ×2 (09:23→20:29)
[2022-08-01] MEDS: Ascorbic Acid 500 mg Chewable Tablet PO SCH (09:23)
[2022-08-01] MEDS: Clopidogrel Bisulfate 75 MG TAB PO SCH (09:24)
[2022-08-01] MEDS: cefTRIAXone\\ROCEPHIN 1 GM in Sodium Chloride 0.9% 100 ML IVPB SCH (16:01)
[2022-08-01 20:26] VITALS: BP 135/65; TEMP 98.6
[2022-08-01] MEDS: Hydroxychloroquine Sulfate 200 MG TAB PO SCH (20:28)
[2022-08-01] MEDS: Sertraline 25 MG TAB PO SCH (20:29)
[2022-08-01] MEDS ORDERED: Cefuroxime 250 MG TAB PO SCH (21:00)
== END 2022-08-01 22:45 | DRG 689 ==
LOC: ERS 14:04 → 2NO 17:10 → OBSVTOIN 07-29 12:29
PROVIDERS: ADMIT Internal Medicine; ATTEND Internal Medicine
PROC: 4A10X4Z Monitoring of Central Nervous Electrical Activity, External Approach (ICD-10-PCS; principal; 2022-07-28)
DX: N39.0 Urinary tract infection, site not specified (principal); U07.1 COVID-19; I42.8 Other cardiomyopathies; A04.72 Enterocolitis due to Clostridium difficile, not specified as recurrent; G30.9 Alzheimer's disease, unspecified; F02.80 Dementia in other diseases classified elsewhere, unspecified severity, without behavioral disturbance, psychotic disturbance, mood disturbance, and anxiety; I25.10 Atherosclerotic heart disease of native coronary artery without angina pectoris; E03.9 Hypothyroidism, unspecified; I48.0 Paroxysmal atrial fibrillation; E78.5 Hyperlipidemia, unspecified; I50.9 Heart failure, unspecified; M81.0 Age-related osteoporosis without current pathological fracture; M06.9 Rheumatoid arthritis, unspecified; G89.29 Other chronic pain; Z90.49 Acquired absence of other specified parts of digestive tract; Z98.890 Other specified postprocedural states; Z79.82 Long term (current) use of aspirin; Z95.810 Presence of automatic (implantable) cardiac defibrillator; Z79.899 Other long term (current) drug therapy; Z86.73 Personal history of transient ischemic attack (TIA), and cerebral infarction without residual deficits; I25.2 Old myocardial infarction
CPT/HCPCS: 36415; 51701; 51798; 70450; 71045; 72170; 80048; 80053; 81001; 82550; 82553; 83690; 83735; 83880; 84443; 84484; 85025; 87086; 87324; 87449; 87493; 87505; 93005; 93306; 93880; 95816; 95819; 95957; 96374; G0378; J0696; J1650; J2272; J2550; J3490; J7050; J7120; U0003; U0005

== ENCOUNTER 2022-12-17 12:20 | Day surgery (SDC) | payer MEDICARE ==
[2022-12-14 09:50] VITALS: BMI 22.4
[2022-12-17] MEDS ORDERED: PROPOFOL 200 MG/20 ML VIAL ONE (14:16)
[2022-12-17] MEDS ORDERED: Lidocaine 1% PF 5 ML VIAL ONE (14:16)
== END 2022-12-17 15:36 | disposition home or self-care (01) ==
LOC: SDC 12:20
PROVIDERS: ATTEND Internal Medicine Gastroenterology
PROC: 0DJD8ZZ Inspection of Lower Intestinal Tract, Via Natural or Artificial Opening Endoscopic (ICD-10-PCS; principal; 2022-12-17)
DX: A49.8 Other bacterial infections of unspecified site (principal); I50.9 Heart failure, unspecified; E78.00 Pure hypercholesterolemia, unspecified; M81.0 Age-related osteoporosis without current pathological fracture; Z91.040 Latex allergy status; Z90.49 Acquired absence of other specified parts of digestive tract; Z90.89 Acquired absence of other organs; Z95.0 Presence of cardiac pacemaker; Z79.899 Other long term (current) drug therapy
CPT/HCPCS: J2704

== ENCOUNTER 2024-02-26 14:33 | Outpatient (CLI) | payer MEDICARE | END 2024-02-26 14:34 | disposition home or self-care (01) | LOC: BICMAMMO 14:33 | PROVIDERS: ATTEND Internal Medicine Rheumatology | DX: M81.0 Age-related osteoporosis without current pathological fracture (principal) | CPT/HCPCS: 77080 ==

== ENCOUNTER 2024-03-09 13:39 | Inpatient (IN) | payer MEDICARE ==
[2024-03-09] MEDS ORDERED: Acetaminophen 325 MG TAB PO PRN (14:51)
[2024-03-09] MEDS: Sodium Chloride 0.9% 1,000 ML IV SCH (15:20)
[2024-03-09] MEDS: cefTRIAXone\\ROCEPHIN 1 GM in Sodium Chloride 0.9% 100 ML IVPB SCH (16:19)
[2024-03-09] MEDS: Carvedilol 3.125 MG TAB PO SCH (16:21)
[2024-03-09] MEDS: Metoprolol Tartrate 5 MG (5 mL) VIAL IVP SCH (17:27)
[2024-03-09 18:43] LABS: Anion Gap 15 mmol/L (10-20); BUN (Urea Nitrogen) 11 mg/dL (9.8-20.1); Calc. Creatinine Clearance 56 mL/min (70-130); Calcium 8.3 mg/dL (7.8-10.44); Carbon Dioxide 22 mmol/L (23-31); Chloride 105 mmol/L (98-107); Estimated GFR 86; Glucose 94 mg/dL (83-110); Potassium 2.7 mmol/L (3.5-5.1); Sodium 139 mmol/L (136-145)
[2024-03-09 18:54] LABS: #Basophils 0.04 10x3/uL (0.0-0.2); %Basophils 0.3 % (0.0-1.0); %Lymphocytes 4.8 % (21.0-51.0); %Monocytes 8.2 % (0.0-10.0); %Neutrophils 83.5 % (42.0-75.0); Hematocrit 43.5 % (36.0-47.0); Hemoglobin 14.9 g/dL (12.0-16.0); Mean Corpuscular HGB CONC 34.3 g/dL (32.0-36.0); Mean Corpuscular Hemoglobin 31.9 pg (27.0-31.0); Mean Corpuscular Volume 93.1 fL (78.0-98.0); Platelet Count 128 10x3/uL (130-400); RBC Distribution Width 14.3 % (11.5-14.5); Red Blood Cell (RBC) Count 4.67 mill/uL (4.20-5.40)
[2024-03-09] MEDS: Sertraline 25 MG TAB PO SCH (21:25)
[2024-03-09] MEDS: Memantine 10 MG TAB PO SCH (21:25)
[2024-03-09] MEDS: Donepezil HCl 10 MG TAB PO SCH (21:25)
[2024-03-09] MEDS: Famotidine 20 MG TAB PO SCH (21:25)
[2024-03-10 05:00] LABS: #Basophils Less than 0.03 10x3/uL (0.0-0.2); #Eosinphils Less than 0.03 10x3/uL (0.0-0.7); %Basophils 0.2 % (0.0-1.0); %Lymphocytes 6.9 % (21.0-51.0); %Monocytes 9.2 % (0.0-10.0); %Neutrophils 83.2 % (42.0-75.0); Hematocrit 41.2 % (36.0-47.0); Hemoglobin 13.3 g/dL (12.0-16.0); Mean Corpuscular HGB CONC 32.3 g/dL (32.0-36.0); Mean Corpuscular Hemoglobin 32.3 pg (27.0-31.0); Platelet Count 115 10x3/uL (130-400); RBC Distribution Width 14.2 % (11.5-14.5); Red Blood Cell (RBC) Count 4.12 mill/uL (4.20-5.40)
[2024-03-10 05:14] LABS: Anion Gap 15 mmol/L (10-20); BUN (Urea Nitrogen) 11 mg/dL (9.8-20.1); Calc. Creatinine Clearance 62 mL/min (70-130); Calcium 7.7 mg/dL (7.8-10.44); Carbon Dioxide 22 mmol/L (23-31); Chloride 108 mmol/L (98-107); Estimated GFR 88; Glucose 87 mg/dL (83-110); Potassium 2.6 mmol/L (3.5-5.1); Sodium 142 mmol/L (136-145)
[2024-03-10] MEDS ORDERED: Potassium Chloride 40 MEQ in Premix 1 BAG IVPB SCH (05:45)
[2024-03-10] MEDS: Potassium Chloride 20 MEQ in Premix 1 BAG IVPB SCH (06:22)
[2024-03-10] MEDS: Levothyroxine Sodium 112 MCG TAB PO SCH (06:23)
[2024-03-10 07:55] LABS: Magnesium 1.8 mg/dL (1.6-2.6)
[2024-03-10] MEDS: Isosorbide Mononitrate 30 MG ER.TAB PO SCH (08:01)
[2024-03-10] MEDS: Enoxaparin 40 MG (0.4 mL) SYRINGE SC SCH (09:28)
[2024-03-10] MEDS: NIRMATRELVIR 150 MG/RITONAVIR 100 MG (RENAL) TAB PO SCH ×2 (10:41→19:55)
[2024-03-10] MEDS: Magnesium 2 GM/50 ML(in water) 2 GM in Premix 1 BAG IVPB SCH (11:08)
[2024-03-10 14:17] LABS: Anion Gap 13 mmol/L (10-20); BUN (Urea Nitrogen) 12 mg/dL (9.8-20.1); Calc. Creatinine Clearance 64 mL/min (70-130); Calcium 7.9 mg/dL (7.8-10.44); Carbon Dioxide 20 mmol/L (23-31); Chloride 109 mmol/L (98-107); Estimated GFR 89; Glucose 119 mg/dL (83-110); Phosphorus 1.7 mg/dL (2.3-4.7); Potassium 3.2 mmol/L (3.5-5.1); Sodium 139 mmol/L (136-145)
[2024-03-10] MEDS: cefTRIAXone\\ROCEPHIN 2 GM in Sodium Chloride 0.9% 100 ML IVPB SCH (16:32)
[2024-03-10] MEDS: Furosemide 40 MG (4 mL) VIAL ONE (16:32)
[2024-03-10] MEDS: Lorazepam 2 MG/ML VIAL SLOW IVP SCH (16:43)
[2024-03-10] MEDS: methylPREDNISolone Sod Succ/PF 125 MG/2 ML VIAL IVP SCH (16:44)
[2024-03-10] MEDS: Ipratropium/Albuterol 3 ML NEB NEB PRN (16:44)
[2024-03-10 17:40] LABS: Troponin I 0.296 ng/mL (< 0.028)
[2024-03-10] MEDS: Potassium Phosphate 30 MMOL in Sodium Chloride 0.9% 250 ML 250 ML IVPB SCH (17:47)
[2024-03-10] MEDS: Potassium Chloride 20 MEQ TAB PO SCH (17:48)
[2024-03-10] MEDS: Ipratropium/Albuterol 3 ML NEB NEB SCH ×2 (18:31→18:54)
[2024-03-10] MEDS: Hydroxychloroquine Sulfate 200 MG TAB PO SCH (19:54)
[2024-03-10] MEDS: Saccharomyces boulardii 250 MG CAP PO SCH (19:55)
[2024-03-10] MEDS: Acetaminophen 650 MG Suppository PR PRN (20:01)
[2024-03-10 21:25] LABS: Potassium 2.9 mmol/L (3.5-5.1)
[2024-03-11] MEDS: Potassium Phosphate 30 MMOL in Sodium Chloride 0.9% 250 ML 250 ML IVPB SCH ×2 (01:00→10:23)
[2024-03-11 06:34] LABS: Anion Gap 15 mmol/L (10-20); BUN (Urea Nitrogen) 13 mg/dL (9.8-20.1); Calc. Creatinine Clearance 58 mL/min (70-130); Calcium 7.6 mg/dL (7.8-10.44); Carbon Dioxide 23 mmol/L (23-31); Chloride 108 mmol/L (98-107); Estimated GFR 86; Glucose 133 mg/dL (83-110); Magnesium 2.1 mg/dL (1.6-2.6); Phosphorus 4.4 mg/dL (2.3-4.7); Potassium 3.3 mmol/L (3.5-5.1); Sodium 143 mmol/L (136-145)
[2024-03-11 06:38] LABS: Troponin I 0.327 ng/mL (< 0.028)
[2024-03-11 07:06] LABS: Hematocrit 44.4 % (36.0-47.0); Hemoglobin 14.8 g/dL (12.0-16.0); Mean Corpuscular HGB CONC 33.3 g/dL (32.0-36.0); Mean Corpuscular Hemoglobin 32.2 pg (27.0-31.0); Mean Corpuscular Volume 96.5 fL (78.0-98.0); Mean Platelet Volume 11.3 fL (7.4-10.4); Platelet Count 111 10x3/uL (130-400); RBC Distribution Width 14.2 % (11.5-14.5)
[2024-03-11] MEDS ORDERED: Albuterol 200 PUFF (6.7GM INHALER) INH PRN (07:35)
[2024-03-11] MEDS: Dexamethasone 4 mg/ml Vial SLOW IVP SCH (08:50)
[2024-03-11 09:46] LABS: #Basophils Less than 0.03 10x3/uL (0.0-0.2); #Eosinphils Less than 0.03 10x3/uL (0.0-0.7); %Lymphocytes 10.3 % (21.0-51.0); %Monocytes 3.3 % (0.0-10.0); %Neutrophils 86.1 % (42.0-75.0)
[2024-03-11] MEDS: Doxycycline 100 MG CAP PO SCH ×2 (10:23→21:48)
[2024-03-11] MEDS: Albuterol 200 PUFF (6.7GM INHALER) INH SCH (10:44)
[2024-03-11] MEDS ORDERED: Metoprolol Tartrate 5 MG (5 mL) VIAL IVP PRN (13:22)
[2024-03-11] MEDS: Multivit, Therapeutic 1 TAB PO SCH (21:47)
[2024-03-11] MEDS: Folic Acid 1 MG TAB PO SCH (21:49)
[2024-03-11] MEDS: Cyanocobalamin (Vitamin B-12) 1,000 MCG TAB PO SCH (21:50)
[2024-03-11] MEDS: Cholecalciferol 1,000 UNITS (25 MCG) TAB PO SCH (21:50)
[2024-03-11] MEDS: Melatonin 3 MG TAB PO PRN (21:53)
[2024-03-12 05:03] LABS: #Basophils Less than 0.03 10x3/uL (0.0-0.2); #Eosinphils Less than 0.03 10x3/uL (0.0-0.7); %Basophils 0.1 % (0.0-1.0); %Lymphocytes 11.7 % (21.0-51.0); %Monocytes 3.6 % (0.0-10.0); %Neutrophils 84.2 % (42.0-75.0); Hemoglobin 12.4 g/dL (12.0-16.0); Mean Corpuscular HGB CONC 33.5 g/dL (32.0-36.0); Mean Corpuscular Hemoglobin 31.7 pg (27.0-31.0); Mean Corpuscular Volume 94.6 fL (78.0-98.0); Mean Platelet Volume 11.9 fL (7.4-10.4); Platelet Count 109 10x3/uL (130-400); RBC Distribution Width 13.9 % (11.5-14.5); Red Blood Cell (RBC) Count 3.91 mill/uL (4.20-5.40)
[2024-03-12 05:16] LABS: ALT (SGPT) 17 U/L (8-55); AST (SGOT) 24 U/L (5-34); Albumin 2.2 g/dL (3.4-4.8); Alkaline Phosphatase 44 U/L (40-110); Anion Gap 13 mmol/L (10-20); BUN (Urea Nitrogen) 17 mg/dL (9.8-20.1); Bilirubin, Total 0.4 mg/dL (0.2-1.2); Calc. Creatinine Clearance 58 mL/min (70-130); Calcium 7.5 mg/dL (7.8-10.44); Carbon Dioxide 23 mmol/L (23-31); Chloride 106 mmol/L (98-107); Estimated GFR 86; Globulin 2.7 g/dL (2.4-3.5); Glucose 127 mg/dL (83-110); Magnesium 1.9 mg/dL (1.6-2.6); Phosphorus 2.9 mg/dL (2.3-4.7); Potassium 3.1 mmol/L (3.5-5.1); Protein, Total 4.9 g/dL (5.8-8.1); Sodium 139 mmol/L (136-145)
[2024-03-12] MEDS: Magnesium 2 GM/50 ML(in water) 2 GM in Premix 1 BAG IVPB SCH (09:44)
[2024-03-12] MEDS: Potassium Bicarbonate/Cit Ac 20 MEQ TAB PO SCH (09:45)
[2024-03-12] MEDS: Potassium Chloride 10 MEQ TAB PO SCH (18:00)
[2024-03-13 06:14] LABS: #Basophils Less than 0.03 10x3/uL (0.0-0.2); #Eosinphils Less than 0.03 10x3/uL (0.0-0.7); %Basophils 0.1 % (0.0-1.0); %Lymphocytes 10.8 % (21.0-51.0); %Monocytes 3.4 % (0.0-10.0); Hematocrit 37.9 % (36.0-47.0); Hemoglobin 12.7 g/dL (12.0-16.0); Mean Corpuscular HGB CONC 33.5 g/dL (32.0-36.0); Mean Corpuscular Hemoglobin 31.4 pg (27.0-31.0); Mean Corpuscular Volume 93.6 fL (78.0-98.0); Mean Platelet Volume 12.1 fL (7.4-10.4); Platelet Count 128 10x3/uL (130-400); Red Blood Cell (RBC) Count 4.05 mill/uL (4.20-5.40)
[2024-03-13 06:27] LABS: Anion Gap 14 mmol/L (10-20); BUN (Urea Nitrogen) 17 mg/dL (9.8-20.1); Calc. Creatinine Clearance 61 mL/min (70-130); Calcium 7.8 mg/dL (7.8-10.44); Carbon Dioxide 25 mmol/L (23-31); Chloride 105 mmol/L (98-107); Estimated GFR 86; Glucose 106 mg/dL (83-110); Potassium 4.6 mmol/L (3.5-5.1); Sodium 139 mmol/L (136-145)
[2024-03-13] MEDS: Dexamethasone 1 MG TAB PO SCH (09:11)
[2024-03-13] MEDS: Famotidine 20 MG TAB PO SCH (22:14)
[2024-03-14] MEDS: Cefdinir 300 MG CAP PO SCH ×2 (13:51→21:52)
[2024-03-14] MEDS: Mirtazapine 15 MG TAB PO SCH (21:53)
[2024-03-15 05:16] LABS: Anion Gap 16 mmol/L (10-20); BUN (Urea Nitrogen) 18 mg/dL (9.8-20.1); Calc. Creatinine Clearance 62 mL/min (70-130); Calcium 8.3 mg/dL (7.8-10.44); Carbon Dioxide 22 mmol/L (23-31); Chloride 106 mmol/L (98-107); Estimated GFR 87; Glucose 100 mg/dL (83-110); Potassium 4.5 mmol/L (3.5-5.1); Sodium 139 mmol/L (136-145)
[2024-03-15 06:23] LABS: #Basophils Less than 0.03 10x3/uL (0.0-0.2); #Eosinphils Less than 0.03 10x3/uL (0.0-0.7); %Basophils 0.2 % (0.0-1.0); %Lymphocytes 11.3 % (21.0-51.0); %Monocytes 5.2 % (0.0-10.0); %Neutrophils 81.5 % (42.0-75.0); Hematocrit 40.4 % (36.0-47.0); Hemoglobin 13.3 g/dL (12.0-16.0); Mean Corpuscular HGB CONC 32.9 g/dL (32.0-36.0); Mean Corpuscular Hemoglobin 31.4 pg (27.0-31.0); Mean Corpuscular Volume 95.3 fL (78.0-98.0); Mean Platelet Volume 11.7 fL (7.4-10.4); Platelet Count 147 10x3/uL (130-400); RBC Distribution Width 14.1 % (11.5-14.5); Red Blood Cell (RBC) Count 4.24 mill/uL (4.20-5.40)
[2024-03-15] MEDS: Multivitamin W/ Minerals 1 TAB PO SCH (09:06)
[2024-03-15] MEDS: Dexamethasone 1 MG TAB PO SCH (09:07)
[2024-03-15 16:26] VITALS: BP 135/74; TEMP 97.1
== END 2024-03-15 17:47 | DRG 871 ==
LOC: UNDOADMIN 13:39 → 2NO 13:39 → UNDODISIN 03-15 17:47
PROVIDERS: ADMIT Student in an Organized Health Care Education/Training Program; ATTEND Family Medicine
PROC: 3E03329 Introduction of Other Anti-infective into Peripheral Vein, Percutaneous Approach (ICD-10-PCS; principal; 2024-03-09)
PROC: 8E0ZXY6 Isolation (ICD-10-PCS; 2024-03-09)
DX: A41.4 Sepsis due to anaerobes (principal); G93.41 Metabolic encephalopathy; J96.01 Acute respiratory failure with hypoxia; U07.1 COVID-19; I50.23 Acute on chronic systolic (congestive) heart failure; I42.9 Cardiomyopathy, unspecified; N39.0 Urinary tract infection, site not specified; F02.80 Dementia in other diseases classified elsewhere, unspecified severity, without behavioral disturbance, psychotic disturbance, mood disturbance, and anxiety; R65.20 Severe sepsis without septic shock; I25.10 Atherosclerotic heart disease of native coronary artery without angina pectoris; G30.9 Alzheimer's disease, unspecified; Z66 Do not resuscitate; E03.9 Hypothyroidism, unspecified; I11.0 Hypertensive heart disease with heart failure; M81.0 Age-related osteoporosis without current pathological fracture; E87.6 Hypokalemia; E83.39 Other disorders of phosphorus metabolism; E83.42 Hypomagnesemia; D69.6 Thrombocytopenia, unspecified; M06.9 Rheumatoid arthritis, unspecified; I48.0 Paroxysmal atrial fibrillation; G50.0 Trigeminal neuralgia; G89.29 Other chronic pain; Z79.890 Hormone replacement therapy; Z79.899 Other long term (current) drug therapy; Z79.01 Long term (current) use of anticoagulants; Z98.890 Other specified postprocedural states; Z95.810 Presence of automatic (implantable) cardiac defibrillator; Z90.49 Acquired absence of other specified parts of digestive tract; Z86.73 Personal history of transient ischemic attack (TIA), and cerebral infarction without residual deficits
CPT/HCPCS: 36415; 36416; 71045; 74176; 80048; 80053; 83735; 83880; 84100; 84443; 84484; 85025; 87040; 94640; J0696; J1100; J1650; J1940; J2060; J2919; J3475; J3480; J7030; J7050; J7620; J8499; J8540

== ENCOUNTER 2024-04-06 19:04 | Emergency (ER) | payer MEDICARE | END 2024-04-06 21:49 | disposition home or self-care (01) | LOC: ERS 19:04 | DX: S09.90XA Unspecified injury of head, initial encounter (principal); S63.392A Traumatic rupture of other ligament of left wrist, initial encounter; F03.90 Unspecified dementia, unspecified severity, without behavioral disturbance, psychotic disturbance, mood disturbance, and anxiety; I50.9 Heart failure, unspecified; W01.0XXA Fall on same level from slipping, tripping and stumbling without subsequent striking against object, initial encounter | CPT/HCPCS: 36416; 70450; 72125; 93005 ==